=== PATIENT | male | born 1955 | race Caucasian/White ===

== ENCOUNTER → 2017-05-20 | Outpatient (CLI) | payer OTHER ==
[~2017-05-20] MED LIST: GADOBUTROL 10 MMOL/10 ML VIAL IV ONE
--- NOTE | 2017-05-20 12:40 | KCIC ---
MRI Brain with and without contrast History Chronic tension type headache, headache for 6 weeks, ringing in the ears, dizziness Technique: Multiplanar, multi sequential pre and postcontrast MR imaging was performed of the brain. Comparison: None Findings: There is no evidence of recent infarct or cytotoxic edema. The ventricles, sulci, and cisterns are within normal limits in size and configuration. There is no significant midline shift, intraaxial mass effect, or focal abnormal extra-axial fluid collection. There is a large right frontal developmental venous anomaly. Nearby, there is a small 3 mm focus of hemosiderin deposition of the right frontal white matter with associated mild T2 and FLAIR hyperintense signal and associated subtle amorphous enhancement . There are some scattered small foci of nonenhancing T2 and FLAIR hyperintense abnormality of the bifrontal deep white matter, also small focus along the posterior left lateral ventricle. There is cavum septum pellucidum. There is no nodular leptomeningeal enhancement. There is preservation of the major intracranial flow-voids at the skull base. The cerebellar tonsils are normal in location. There is no significant abnormality of the pineal gland or pituitary gland. There is patchy mild bilateral ethmoid air cell mucosal thickening. There is minimal left greater than right maxillary sinus mucosal thickening. The mastoid air cells are aerated. There is preserved marrow signal of the clivus. Impression: 1. Scattered minimal T2 and FLAIR hyperintense abnormality greatest of the bifrontal white matter is nonspecific. Findings could be due to chronic microvascular ischemic disease. White matter changes can be seen in patients with migraine headaches. Pattern is not particularly suggestive of an inflammatory demyelinating disease. 2. There is incidental large right frontal developmental venous anomaly. 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 Electronically signed by: Jonathan Bolden MD (05/20/2017 12:36 PM) [id number]
== END | disposition home or self-care (01) ==
LOC: EDBD 11:10 → KCIC MRI 11:10
PROVIDERS: ATTEND Physician Assistant Medical
DX: H93.13 Tinnitus, bilateral (principal); R51 Headache; R42 Dizziness and giddiness
CPT/HCPCS: 70553; A9585